=== PATIENT | male | born 1990 | race Caucasian/White ===

== ENCOUNTER 2021-09-26 19:25 | Emergency (ER) | payer SELFPAY ==
[2021-09-26 19:54] VITALS: BP 189/123; PULSE 92; RESP 16; TEMP 36.2; O2SAT 95; BMI 43.5
[2021-09-26 21:46] LABS: MANUAL DIFF FLAG NO
[2021-09-26 21:51] LABS: Appearance Urine CLEAR; Color Urine DK YELLOW; Glucose Urine UA NEG (NEG); Leukocyte Esterase Urine NEG (NEG); Nitrite Urine NEG (NEG); PH 5.5 (5.0-8.0); Specific Gravity - Urine >= 1.030 (1.005-1.025); UACC Culture Trigger NO; Urine Blood 1+ (NEG); Urine Ketones 15 MG/DL (NEG); Urine Protein 1+ MG/DL (NEG-TRACE)
[2021-09-26 21:55] LABS: Basophils Percent Auto 0.4 % (0-2); Eosinophils Percent Auto 0.4 % (0-4); Hematocrit 49.8 % (42.0-52.0); Hemoglobin 17.8 g/dl (14.0-18.0); Imm Gran Abs Auto 0.02 X10*3/uL (0.00-0.03); Imm Gran Pct Auto 0.2 % (0.0-0.4); Lymphocytes Absolute Auto 1.1 X10*3/uL (1.2-4.9); Lymphocytes Percent Auto 12.2 % (20-40); Mean Corpuscular HGB Conc 35.7 g/dl (31.0-36.0); Mean Corpuscular Volume 89.6 fL (80.0-98.0); Mean Platelet Volume 9.3 fL (9.4-12.4); Neutrophils Absolute Auto 6.8 x10*3/uL (2.0-8.3); Neutrophils Percent Auto 75.8 % (45-73); Platelet Count 249 X10*3/uL (160-400); Red Blood Count 5.56 X10*6/uL (4.60-5.80); Red Cell Distribution Width 11.7 % (11.0-16.0)
[2021-09-26 22:05] LABS: WBC Urine 0 /HPF (0-4)
[2021-09-26 22:06] LABS: Alanine Aminotransferase 136 U/L (0-40); Albumin Level 4.9 g/dL (3.5-5.0); Alkaline Phosphatase 87 U/L (39-117); Anion Gap 17 (12-20); Aspartate Amino Transferase 106 U/L (5-37); Bilirubin Total 1.5 mg/dL (0.0-1.0); Blood Urea Nitrogen 10 mg/dL (9-16); Calcium 10.5 mg/dL (8.4-10.2); Carbon Dioxide 27 mmol/L (22-29); Chloride 96 mmol/L (96-108); Creatinine Clr Calc Pharmacy 149.4; Estimated Glomerular Filt Rate > 60; Glucose Random 99 mg/dL (60-115); Mucus Urine 3+ /LPF; Potassium 3.8 mmol/L (3.3-5.1); Sodium 136 mmol/L (135-145); Squamous Epithelial Cell Urine TRACE /LPF
[2021-09-26 23:39] VITALS: BP 172/106; PULSE 75; RESP 19; TEMP 37.4; O2SAT 98
--- NOTE | 2021-09-26 23:59 | ED_ITS ---
HPI - Abdominal Pain General Chief Complaint: ETOH/Substance Use Stated Complaint: abd pain, back pain Time Seen by Provider: 09/26/21 23:52 Source: patient Mode of arrival: ambulatory Limitations: no limitations History of Present Illness HPI narrative: Patient alcoholic for a long time drinks about 7 shots of vodka every day been clean for last 10 days then started drinking heavy or for last 5 days none for last 3 days complaining of heartburn anxious worried about his liver slightly anxious no vomiting no diarrhea patient used to have high blood pressure in the past not taking any medication on arrival patient's blood pressure was elevated to 189/123 repeat blood pressure 172/106 with heart rate of 75 denies any jitteriness no tremors does not need any medication withdrawal as such CIWA scale was only 4 Related Data Previous Rx's Medication Instructions Recorded amlodipine 10 mg tablet 10 mg PO DAILY #30 tab 09/27/21 lorazepam 1 mg tablet (Ativan) 1 mg PO TID PRN #14 tab 09/27/21 Allergies Allergy/AdvReac Type Severity Reaction Status Date / Time Penicillins [PENICILLINS] Allergy Unknown RASH Unverified 02/17/20 18:33 Review of Systems Review of Systems Yes all other systems are reviewed and are negative PMFSH Past Medical History Medical History ADHD HTN (hypertension) Social History Social History Alcohol intake: current Alcohol intake frequency: 3 or more drinks per day Alcohol type: hard liquor Patient Tobacco Use Status: Never used Tobacco Use of substances other than those prescribed or required for medical reasons: No Substance Use Type: Marijuana Substance Use Frequency: Daily Advance Directives: No Advance Directives Information Provided: Yes Physical Exam ED Vital Signs: Vital Signs - 24 hr 09/26/21 19:54 09/26/21 23:39 Temperature 97.2 F 99.3 F Pulse Rate 92 75 Respiratory Rate 16 19 Blood Pressure 189/123 H 172/106 H Pulse Oximetry 95 98 BMI result Body Mass Index 43.5 Appearance: Alert. Oriented X3. No acute distress. Eyes: No pallor or icterus ENT: Pharynx normal. Oral Mucosa moist Neck: Normal inspection. Neck supple. CVS: Normal heart rate and rhythm. Pulses normal. Respiratory: No respiratory distress. Equal air entry bilateral, no wheezing/rales/rhonchi Abdomen: Soft , mild tenderness right upper quadrant and epigastric area, Bowel sounds are present, no mass palpable, no CVA tenderness Skin: Skin warm and dry. Normal skin color. Normal skin turgor. Extremities: No lower extremity edema. No calf tenderness Neuro: Oriented X 3. Course Reevaluation(s) Reevaluation #1: Patient supposed to be evaluated in the ER after Ativan but were discharged by the nurse by mistake, patient prescription was sent to the pharmacy Time: 01:42 MDM - Abdominal Pain MDM Narrative Medical decision making narrative: Patient has elevated blood pressure with history of alcohol use CIWA scale of 3 liver enzymes are slightly elevated no signs of hepatic decompensation. Will discharge amlodipine and Ativan advised patient to drink follow with PCP take the medication for blood pressure Lab Data Attestation: I reviewed the patient's lab results. Result diagrams: 09/26/21 21:39 09/26/21 21:39 Labs: Lab Results 09/26/21 09/26/21 09/26/21 Range/Units 21:39 21:39 21:39 WBC 9.0 (4.8-10.8) X10*3/uL RBC 5.56 (4.60-5.80) X10*6/uL Hgb 17.8 (14.0-18.0) g/dl Hct 49.8 (42.0-52.0) % MCV 89.6 (80.0-98.0) fL MCH 32.0 (27.0-33.0) pg MCHC 35.7 (31.0-36.0) g/dl RDW 11.7 (11.0-16.0) % Plt Count 249 (160-400) X10*3/uL MPV 9.3 L (9.4-12.4) fL Immature Gran % (Auto) 0.2 (0.0-0.4) % Neut % (Auto) 75.8 H (45-73) % Lymph % (Auto) 12.2 L (20-40) % Charles % (Auto) 11.0 (2-11) % Eos % (Auto) 0.4 (0-4) % Baso % (Auto) 0.4 (0-2) % Lymph # (Auto) 1.1 L (1.2-4.9) X10*3/uL Charles # (Auto) 1.0 (0.1-1.2) X10*3/uL Eos # (Auto) 0.0 (0.0-0.4) X10*3/uL Baso # (Auto) 0.0 (0.0-0.2) X10*3/uL Abs Immat Gran (auto) 0.02 (0.00-0.03) X10*3/uL Absolute Neuts (auto) 6.8 (2.0-8.3) x10*3/uL Absolute Nucleated RBC 0.000 (0.0-0.012) X10*3/uL Nucleated RBC % (auto) 0.0 (0.0-0.2) /100WBC Sodium 136 (135-145) mmol/L Potassium 3.8 (3.3-5.1) mmol/L Chloride 96 (96-108) mmol/L Carbon Dioxide 27 (22-29) mmol/L Anion Gap 17 (12-20) BUN 10 (9-16) mg/dL Creatinine 0.90 (0.5-1.4) mg/dL Estim Creat Clear Calc 149.4 Estimated GFR > 60 Random Glucose 99 (60-115) mg/dL Calcium 10.5 H (8.4-10.2) mg/dL Total Bilirubin 1.5 H (0.0-1.0) mg/dL AST 106 H (5-37) U/L ALT 136 H (0-40) U/L Alkaline Phosphatase 87 (39-117) U/L Total Protein 9.0 H (6.5-8.0) g/dL Albumin 4.9 (3.5-5.0) g/dL Urine Color DK YELLOW Urine Appearance CLEAR Urine pH 5.5 (5.0-8.0) Ur Specific Beverly >= 1.030 H (1.005-1.025) Urine Protein 1+ H (NEG-TRACE) MG/DL Urine Glucose (UA) NEG (NEG) MG/DL Urine Ketones 15 (NEG) MG/DL Urine Blood 1+ H (NEG) Urine Nitrite NEG (NEG) Ur Leukocyte Esterase NEG (NEG) Urine RBC 1-4 (0) /HPF Urine WBC 0 (0-4) /HPF Ur Squamous Epith Cells TRACE /LPF Urine Bacteria NONE /LPF Urine Mucus 3+ /LPF Discharge Plan Discharge Clinical Impression: Alcohol dependence, Hypertension Patient Disposition: Home, Self-Care Instructions: Abuse of Alcohol (ED), Hypertension (ED) Additional Instructions: Take medication for blood pressure as prescribed blood pressure should be less than 130/80 Take Ativan for withdrawal as needed Follow-up with detox/PCP for further management Prescriptions: New amlodipine 10 mg tablet 10 mg PO DAILY Qty: 30 0RF lorazepam [Ativan] 1 mg tablet 1 mg PO TID PRN (Reason: alcohol withdrawal) Qty: 14 0RF Interventions: ED Discharge Assessment Last Done: 09/27/21 01:35 Discharge Date/Time: 09/27/21 01:35
[2021-09-27] MEDS: amLODIPine Besylate 10 MG TABLET PO (00:08)
== END 2021-09-27 01:35 | disposition home or self-care (01) ==
PROVIDERS: Emergency Provider Internal Medicine
DX: F10.20 Alcohol dependence, uncomplicated (principal); I10 Essential (primary) hypertension
CPT/HCPCS: 36415; 80053; 81001; 81003; 85025; 99283; 99285